=== PATIENT | female | born 1980 | race Caucasian/White ===

== ENCOUNTER → 2019-11-10 09:15 | Outpatient (CLI) | payer OTHER, SELFPAY ==
--- NOTE | 2019-11-10 09:29 | XR_ITS ---
PROCEDURE: XR KUB CLINICAL INDICATION: LT FLANK PAIN The the COMPARISON: No exams were available for comparison FINDINGS: Minimal thoracolumbar curvature convex left. There is a mild amount of retained colonic feces. No intestinal obstruction. Calcification noted over the lower pole of the right kidney at 4 mm and may be due to renal stone. CT may confirm. Small sclerotic focus overlies the left ilium medially and could be due to a bone island IMPRESSION: Possible right nephrolithiasis with constipation Dictated b Darrian Rosa MD 11/10/2019 12:09 Darrian Rosa MD in [place] 11/10/2019 12:09
== END ==
PROVIDERS: PCP Family Medicine; Visit Provider Family Medicine
DX: R10.9 Unspecified abdominal pain (principal)
CPT/HCPCS: 74018